=== PATIENT | female | born 1965 | race American Indian/Alaskan Native ===

== ENCOUNTER 2017-08-12 08:30 | Day surgery (SDC) | payer BC ==
[~2017-08-12 08:30] MED LIST: NACL 0.9% 1000 ML 1,000 ML IV SCH; PEPCID PO NR; VERSED IV NR
[2017-08-12] MEDS ORDERED: NACL BACTERIOSTATIC INFILTRATI ONE (15:10)
[2017-08-12] MEDS ORDERED: PERCOCET 5/325 PO PRN (15:19)
[2017-08-12] MEDS ORDERED: DILAUDID IV PRN (15:19)
[2017-08-12] MEDS ORDERED: ZOFRAN IV PRN (15:19)
--- NOTE | 2017-08-12 15:19 | Anesthesia Consultation ---
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
--- NOTE | 2017-08-12 15:20 | Anesthesia Day of Surgery ---
Anesthesia Day of Surgery - Day of Surgery Patient Examined: Yes Patient H&P Reviewed: Yes Patient is NPO: Yes
--- NOTE | 2017-08-12 16:46 | Post Operative Note ---
Date of procedure: 08/12/17 Pre-op diagnosis: ureteral stone Post-op diagnosis: same Findings: as above Procedure: cysto rpg ureteroscopy bilat stebnt laser Anesthesia: GETA Surgeon: TRACY DENNIS Estimated blood loss: none Condition: stable Disposition: PACU
--- NOTE | 2017-08-12 16:48 | Discharge Summary ---
Short Stay Discharge Plan Activity: other (no strsining ) Weight Bearing Status: Full Weight Bearing Diet: low fat, low cholesterol, low salt Special Instructions: other (inc fluids ) Follow up with: VINNY ACOSTA MD [Primary Care Provider] - 7 Days TRACY DENNIS MD [Staff Physician] - 10 Days
[2017-08-12] MEDS ORDERED: ANCEF/STERILE WATER 2 GM/20 ML IV NR (17:00)
[2017-08-12] MEDS ORDERED: DIPRIVAN 10 MG/ML IV ONE ×2 (17:25→17:56)
[2017-08-12] MEDS ORDERED: XYLOCAINE MPF 2% ONE (17:25)
[2017-08-12] MEDS ORDERED: SUBLIMAZE ONE (17:25)
[2017-08-12] MEDS ORDERED: ePHEDrine SULFATE ONE (17:59)
[2017-08-12] MEDS ORDERED: OMNIPAQUE 300 MG/50 ML (CATH LAB) IV ONE (18:01)
[2017-08-12] MEDS ORDERED: WATER FOR IRRIG STERILE IR ONE (18:01)
[2017-08-12] MEDS ORDERED: ZOFRAN ONE (18:05)
[2017-08-12] MEDS ORDERED: NACL 0.9% 1000 ML 1,000 ML ONE (18:08)
[2017-08-12] MEDS ORDERED: DILAUDID ONE (18:59)
[2017-08-12] MEDS ORDERED: GARAMYCIN/NS 120MG/100ML 120 MG/100 ML BAG IV ONE (19:00)
[2017-08-12] MEDS ORDERED: LASIX ONE (19:15)
--- NOTE | 2017-08-12 20:02 | Operative Report ---
PREOPERATIVE DIAGNOSIS: Bilateral mid ureteral stone. POSTOPERATIVE DIAGNOSES: Bilateral mid ureteral stone. PROCEDURE: Cystoscopy, bilateral retrograde, right ureteral balloon dilatation, ureteroscopy with reinsertion of double-J stent, left ureteroscopy with a stone transposition, laser of stone in the renal pelvis and insertion of double-J stent 7 x 24 bilaterally. SURGEON: Josué Morse MD ANESTHESIA: General. FINDINGS: This is a woman who presented with severe septicemia, history of cancer and pyuria. We left the stents in and now she presents for followup cystoscopy. She had bilateral mid ureteral stones, 1 at the level of the pelvic brim, 1 in the level of L3, now presents for treatment. DESCRIPTION OF PROCEDURE: The patient brought to the operating room and placed on the operating table. Following induction of anesthesia, placed in lithotomy position, prepped and draped in usual sterile fashion. A Glidewire was inserted through the stent along the right side and we tried to insert the rigid and flexible scope. There was some tightness at the lower ureter. We used the balloon dilator and we were able to get up to the stone, which started moving proximally. It was visualized, but it was imbedded in part of the epithelium. When we had to laser, there was just too much edema around it and the upper ureter should be noted that was kinked, there was a loop in the upper ureter, so it was initially hard to even get a second wire in because it kept coiling back on itself. With the visualization of the flexible ureteroscope, we had the second wire placed through a double lumen catheter first and then we used the flexible ureteroscope over the second wire. We kept seeing glimpses of the stone, but there was too much edema around it. We did not want to traumatize the upper mid ureter, so we placed a 7-Japanese coil in the kidney, did not laser on that side. The ureter was tortuous. It was almost like there is a little pocket in the upper ureter where we had to straighten it out to set place a second wire. At this point, attention was turned towards the left side, we grabbed the stent and put a wire through the stent and it was a straight shot with the flexible scope. We saw the stone and with irrigation, was right up into the renal pelvis. We were able to laser it to multiple calices. We did not see any other stones. The patient tolerated the procedure well, I placed a 7-Japanese double J in the left kidney, coiled in the bladder. The patient tolerated the procedure well. She was given Ancef and gentamicin and family notified we will have to, I suspect go back, we will get tomograms and be sure that maybe we could do lithotripsy. Otherwise, we will have to let the stent sit for about a month and go back. The right side has a tortuous ureter and we have to let this sit so we can have better access with the flexible ureteroscope. Brought to recovery in stable condition. Family notified. JOB# [id number] ITALO/MARIANO
--- NOTE | 2017-08-12 20:05 | Post Anesthesia Evaluation ---
- Post Anesthesia Evaluation Patient Participated: Yes Airway Patent: Yes Stable Respiratory Function: Yes Temp > 96.8F: Yes Pain Manageable: Yes Adequeate Hydration: Yes Anesthesia Complications: No
[2017-08-12 22:07] VITALS: BP 138/72
--- NOTE | 2017-08-13 08:10 | Fluoroscopy Report ---
SEVEN FLUOROSCOPIC IMAGES AT BILATERAL RETROGRADE PYELOGRAM: 08/12/17 CLINICAL: Bilateral renal stones. FINDINGS: Filing Machine Operator images bilateral ureteral stents.. Subsequent images demonstrate retrograde opacification of moderately dilated bilateral renal collecting systems. For more detail, please refer to the operative report.
--- NOTE | 2017-08-13 08:11 | Fluoroscopy Report ---
FLUOROSCOPIC IMAGE AT BILATERAL RP08/12/17 CLINICAL: Bilateral kidney stones. FINDINGS: A single image demonstrates a wire in the right ureter and a left ureteral stent. For more details, please refer to the operative report.
== END 2017-08-12 22:00 | disposition home or self-care (01) ==
LOC: OR 08:30
PROVIDERS: ATTEND Urology
DX: N20.1 Calculus of ureter (principal); I10 Essential (primary) hypertension
CPT/HCPCS: 36415; 52356; 74420; 74485; 82962; 84132; A4217; C1726; C1758; C1769; C2617; J0690; J1170; J1580; J1940; J2250; J2405; J2704; J3010; J7030; Q9967

== ENCOUNTER 2017-09-04 10:43 | Day surgery (SDC) | payer BC ==
[~2017-09-04 10:43] MED LIST changes: -NACL 0.9% 1000 ML 1,000 ML IV SCH; +OMNIPAQUE 300 MG/50 ML (CATH LAB) IV ONE; -PEPCID PO NR; -VERSED IV NR; +WATER FOR IRRIG STERILE IR ONE
--- NOTE | 2017-09-04 12:21 | Anesthesia Consultation ---
Anesthesia Consult and Med Hx Date of service: 09/04/17 - Airway Anesthetic Teeth Evaluation: Good ROM Head & Neck: Adequate Mental/Hyoid Distance: Adequate Mallampati Class: Class II Intubation Access Assessment: Probably Good - Pulmonary Exam CTA: Yes - Cardiac Exam Cardiac Exam: RRR - Pre-Operative Health Status ASA Pre-Surgery Classification: ASA2 Proposed Anesthetic Plan: General - Pulmonary Hx Smoking: No Hx Asthma: No COPD: No Hx Pneumonia: No Hx Sleep Apnea: No (KEY PRE SCREEN HIGH RISK) - Cardiovascular System Hx Hypertension: Yes - Central Nervous System Hx Back Pain: Yes (CANCER METS TO SPINE) Hx Psychiatric Problems: No - Endocrine Hx Renal Disease: Yes (bilateral stones) Hx End Stage Renal Disease: No Hx Non-Insulin Dependent Diabetes: No (on metformin due to chemo) - Other Systems Hx Cancer: Yes
--- NOTE | 2017-09-04 12:21 | Anesthesia Day of Surgery ---
Anesthesia Day of Surgery - Day of Surgery Patient Examined: Yes Patient H&P Reviewed: Yes Patient is NPO: Yes
[2017-09-04] MEDS ORDERED: DIPRIVAN 10 MG/ML IV ONE (12:23)
[2017-09-04] MEDS ORDERED: SUBLIMAZE ONE (12:24)
[2017-09-04] MEDS ORDERED: VALIUM ONE (12:27)
[2017-09-04] MEDS ORDERED: VERSED ONE (12:35)
[2017-09-04] MEDS ORDERED: WATER FOR IRRIG STERILE IR ONE (12:58)
[2017-09-04] MEDS ORDERED: PEPCID PO NR (13:00)
[2017-09-04] MEDS ORDERED: LACTATED RINGERS 1,000 ML IV SCH (13:00)
[2017-09-04] MEDS ORDERED: VERSED IV NR (13:00)
[2017-09-04] MEDS ORDERED: ANCEF/STERILE WATER 2 GM/20 ML 2 GM/20 ML SYRINGE IV NR (13:00)
[2017-09-04] MEDS ORDERED: OMNIPAQUE 300 MG/50 ML (CATH LAB) IV ONE (13:03)
[2017-09-04] MEDS ORDERED: ZOFRAN ONE (13:17)
[2017-09-04] MEDS ORDERED: DECADRON ONE (13:17)
[2017-09-04] MEDS ORDERED: XYLOCAINE MPF 2% ONE (13:17)
[2017-09-04] MEDS ORDERED: LASIX ONE (13:38)
[2017-09-04] MEDS ORDERED: LOPRESSOR IV ONE (14:04)
[2017-09-04] MEDS ORDERED: DILAUDID ONE (14:20)
[2017-09-04] MEDS: DILAUDID IV PRN ×2 (14:20→14:30)
[2017-09-04] MEDS ORDERED: ZOFRAN IV PRN (14:50)
--- NOTE | 2017-09-04 15:33 | Post Operative Note ---
Date of procedure: 09/04/17 Pre-op diagnosis: r ureteral stone stricture Post-op diagnosis: same Findings: as above Procedure: cysto dil rpg urerteroscopy j stent Anesthesia: GETA Surgeon: TRACY DENNIS Estimated blood loss: none Pathology: none Condition: stable Disposition: PACU
--- NOTE | 2017-09-04 15:34 | Discharge Summary ---
Short Stay Discharge Plan Activity: other (no straining ) Weight Bearing Status: Full Weight Bearing Diet: regular Special Instructions: other (inc fluids ) Durable Medical Equipment Needed Upon Discharge: other (has j stent ) Follow up with: VINNY ACOSTA MD [Primary Care Provider] - 7 Days TRACY DENNIS MD [Staff Physician] - 09/25/17
[2017-09-04 16:16] VITALS: BP 147/87
--- NOTE | 2017-09-04 18:18 | Operative Report ---
PREOPERATIVE DIAGNOSES: Bilateral ureteral stones, metastatic lung cancer. POSTOPERATIVE DIAGNOSES: Bilateral ureteral stones, metastatic lung cancer with ureteral strictures on the right with very tortuous right ureter. PROCEDURE: Cystoscopy, removal of left J stent, right ureteral balloon dilatation and dilatation with insertion of 2 wires, right flexible ureteroscopy, and nephroscopy and reinsertion of double-J stent. SURGEON: Josué Morse MD. ANESTHESIA: General. FINDINGS: This is a woman with bilateral ureteral stones presented with severe pain, azotemia, sepsis. Stents were placed. When we went back, the stone was removed on the left side. She now presents for left stent removal and the right stone was embedded in a very tortuous ureter, so we left the stent on the right. DESCRIPTION OF PROCEDURE: The patient was brought to the operating room and placed on the operating table. Following induction of anesthesia, placed in lithotomy position, prepped and draped in usual sterile fashion. The right stent was partially withdrawn and a wire coiled in the kidney. We could see clearly it was not so easy to get the wire up when she got below this flap. At this point, the wire was in position, we did not want to take a chance, so we did ureteroscopy and there was a stricture at the level of the vessels. The wire would not go past that kink in the upper ureter. At this point, we placed the double lumen catheters through the wire that was in the kidney and placed a second safety wire. We then tried the ureteral dilating sheath, which the inner core went up to the kidney, but the sheath could not go past the lower stricture and we did not push it. We then took a balloon and dilated the flap and with flexible ureteroscopy, we were able to get past the strictures and it looks like there was a tiny stone that was manipulated up in the kidney. We did not need a laser, it was very small. The patient tolerated the procedure well. The flap was quite prominent in the upper ureter and that is why many times the wire would just coil back on itself. A double J-7 was coiled in the right kidney and then cystoscopy in the left J was removed. The patient tolerated the procedure well. No complications. Family notified, in stable condition. JOB# [id number] ITALO/MARIANO
--- NOTE | 2017-09-05 14:24 | Fluoroscopy Report ---
FLUORO RETROGRADE UROGRAPHY INDICATION: Right ureteral stone. COMPARISON: 08/12/2017. FINDINGS: 7 intraoperative fluoroscopic images obtained between 1:46 PM and 2:29 PM, 09/04/2017 available for review as also separately obtained image from 2:17 PM, 09/04/2017. Initial images again demonstrate bilateral double-J ureteral stent. Right ureteroscopy performed with contrast injection faintly demonstrating mild to moderate hydronephrosis. Right balloon dilatation and stent exchange also performed. Final images demonstrate left double-J ureteral stent removal. No calculus identified. CONCLUSION: Findings, as above. Thank you for the opportunity to participate in this patient's care.
== END 2017-09-04 16:00 | disposition home or self-care (01) ==
LOC: OR 10:43
PROVIDERS: ATTEND Urology
DX: N13.5 Crossing vessel and stricture of ureter without hydronephrosis (principal); N20.1 Calculus of ureter; C78.01 Secondary malignant neoplasm of right lung; C80.1 Malignant (primary) neoplasm, unspecified; I10 Essential (primary) hypertension; E11.9 Type 2 diabetes mellitus without complications; Z79.84 Long term (current) use of oral hypoglycemic drugs; Z79.899 Other long term (current) drug therapy; Z90.710 Acquired absence of both cervix and uterus; Z98.890 Other specified postprocedural states; Z85.9 Personal history of malignant neoplasm, unspecified
CPT/HCPCS: 52344; 74420; 74485; 82962; A4217; C1725; C1726; C1758; C1769; C2617; J0690; J1100; J1170; J1940; J2250; J2405; J2704; J3010; J7120; Q9967

== ENCOUNTER 2017-11-19 19:30 | Emergency (ER) | payer BC ==
[2017-11-19 22:00] VITALS: BP 174/96
[2017-11-19 22:59] LABS: Basophils % (Auto) 0.2 % (0.0-1.8); Eosinophils % (Auto) 0.2 % (0.0-4.3); Hematocrit 37.6 % (30.3-42.9); Hemoglobin 12.3 gm/dl (10.1-14.3); Lymphocytes # (Auto) 1.2 K/mm3 (1.2-5.4); Lymphocytes % (Auto) 12.8 % (13.4-35.0); Mean Corpuscular HGB Conc 33 % (30-34); Mean Corpuscular Hemoglobin 27 pg (28-32); Mean Corpuscular Volume 84 fl (79-97); Monocytes # (Auto) 0.7 K/mm3 (0.0-0.8); Monocytes % (Auto) 7.5 % (0.0-7.3); Platelet Count 285 K/mm3 (140-440)
[2017-11-19 23:08] LABS: Bacteria,Urine 1+ /HPF (Negative); Bilirubin,Urine NEG (Negative); Blood,Urine SM (Negative); Color,Urine Yellow (Yellow); Hyaline Casts,Urine 1 /LPF; Mucus,Urine 1+ /HPF; Nitrite,Urine NEG (Negative); Urobilinogen,Urine < 2.0 mg/dL (<2.0)
[2017-11-19 23:16] LABS: Alanine Aminotransferase 10 units/L (7-56); Albumin 3.6 g/dL (3.9-5); BUN/Creatinine Ratio 17; Blood Urea Nitrogen 12 mg/dL (7-17); Calcium 9.5 mg/dL (8.4-10.2); Hemolysis Index 6; Lipase 28 units/L (13-60)
== END 2017-11-20 03:35 | disposition left against medical advice (07) ==
LOC: ED 19:30
DX: R10.9 Unspecified abdominal pain (principal); Z53.21 Procedure and treatment not carried out due to patient leaving prior to being seen by health care provider
CPT/HCPCS: 36415; 80053; 81001; 83690; 85025

== ENCOUNTER 2017-11-29 13:21 | Outpatient (CLI) | payer BC ==
--- NOTE | 2017-11-29 15:08 | Cat Scan Report ---
CT abdomen and pelvis without contrast: Hydronephrosis. Transverse images are performed from the lower chest to the ischium with coronal and sagittal 2-D reformatted images. Imaging of the lung bases demonstrates atelectasis of the medial posterior right lung. There is either a small right pleural effusion or thickening of the right pleura posteriorly. The abdominal organs appear generally unremarkable. The opacified bowel and mesentery appears grossly normal. The left kidney appears normal. There is significant hydronephrosis and hydroureter of the right side. There is a 4 mm calculus noted in the lower third of the right ureter. There are numerous phleboliths which are somewhat confusing but did not appear to lie within the ureter. Impression: Right hydronephrosis and hydroureter presumably due to the obstructing lower ureteral calculus. Right lower lobe pulmonary segmental atelectasis and pleural thickening/effusion.
== END 2017-11-29 13:22 | disposition home or self-care (01) ==
LOC: CT 13:21
PROVIDERS: ATTEND Urology
DX: N13.2 Hydronephrosis with renal and ureteral calculous obstruction (principal); J98.11 Atelectasis; I87.8 Other specified disorders of veins
CPT/HCPCS: 74176

== ENCOUNTER 2019-01-19 07:32 | Day surgery (SDC) | payer BC ==
[~2019-01-19 07:32] MED LIST changes: +NACL 0.9% 1000 ML 1,000 ML IV SCH; -OMNIPAQUE 300 MG/50 ML (CATH LAB) IV ONE; -WATER FOR IRRIG STERILE IR ONE
[2019-01-19] MEDS ORDERED: ANCEF/STERILE WATER 2 GM/20 ML IV NR (08:00)
[2019-01-19] MEDS ORDERED: DILAUDID IV PRN (08:37)
[2019-01-19] MEDS ORDERED: TYLENOL PO PRN (08:37)
[2019-01-19] MEDS ORDERED: DEMEROL IV PRN (08:37)
[2019-01-19] MEDS ORDERED: SUBLIMAZE IV PRN (08:37)
[2019-01-19] MEDS ORDERED: ZOFRAN IV PRN (08:37)
--- NOTE | 2019-01-19 08:45 | Anesthesia Consultation ---
Anesthesia Consult and Med Hx Date of service: 01/19/19 - Airway Anesthetic Teeth Evaluation: Good ROM Head & Neck: Adequate Mental/Hyoid Distance: Adequate Mallampati Class: Class II Intubation Access Assessment: Good - Pulmonary Exam CTA: Yes - Cardiac Exam Cardiac Exam: RRR - Pre-Operative Health Status ASA Pre-Surgery Classification: ASA2, ASA3 Proposed Anesthetic Plan: General - Pulmonary Hx Smoking: No Hx Asthma: No COPD: No Hx Pneumonia: No Hx Sleep Apnea: No (KEY PRE SCREEN HIGH RISK.) - Cardiovascular System Hx Hypertension: Yes (X 3 YRS) Hx Heart Attack/AMI: Yes (12/04/17) Hx Angina: No - Central Nervous System Hx Back Pain: Yes (DUE TO CA OF SPINE) Hx Psychiatric Problems: No - Endocrine Hx Renal Disease: Yes (bilateral stones) Hx End Stage Renal Disease: No Hx Non-Insulin Dependent Diabetes: No (on metformin due to chemo) - Hematic Hx Anemia: Yes - Other Systems Hx Cancer: Yes (DX 2014)
--- NOTE | 2019-01-19 08:46 | Anesthesia Day of Surgery ---
Anesthesia Day of Surgery - Day of Surgery Patient Examined: Yes Patient H&P Reviewed: Yes Patient is NPO: Yes Beta Blockers: Yes Cardiac Clearance: No Pulmonary Clearance: No
[2019-01-19] MEDS ORDERED: SUBLIMAZE ONE (08:52)
[2019-01-19] MEDS ORDERED: DIPRIVAN 10 MG/ML IV ONE (08:52)
[2019-01-19] MEDS ORDERED: WATER FOR IRRIG STERILE IR ONE ×2 (08:52→08:53)
[2019-01-19] MEDS ORDERED: ROBINUL ONE (08:55)
[2019-01-19] MEDS ORDERED: XYLOCAINE MPF 2% ONE (08:55)
[2019-01-19] MEDS ORDERED: NEO SYNEPHRINE/NS Syringe(OR USE) IV ONE (08:55)
[2019-01-19] MEDS ORDERED: LACTATED RINGERS 1,000 ML IV SCH (09:00)
[2019-01-19] MEDS ORDERED: TORADOL IV PRN (09:30)
--- NOTE | 2019-01-19 10:31 | Post Operative Note ---
Date of procedure: 01/19/19 Pre-op diagnosis: r hydro stone Post-op diagnosis: same Findings: as above Procedure: cysto rpgs ureteroscopy stent Anesthesia: GETA Surgeon: TRACY DENNIS Estimated blood loss: none Pathology: none Disposition: PACU
--- NOTE | 2019-01-19 10:33 | Discharge Summary ---
Short Stay Discharge Plan Activity: other (inc fluids ) Weight Bearing Status: Full Weight Bearing Diet: regular Special Instructions: other (inc fluids ) Durable Medical Equipment Needed Upon Discharge: other (has j stent ) Follow up with: VINNY ACOSTA MD [Primary Care Provider] - 7 Days TRACY DENNIS MD [Staff Physician] - 14 Days
[2019-01-19 11:34] VITALS: BP 137/81
--- NOTE | 2019-01-19 12:20 | Operative Report ---
PREOPERATIVE DIAGNOSES: Severe right hydronephrosis, damaged kidney for quite some time with distal ureteral obstruction. POSTOPERATIVE DIAGNOSES: Severe right hydronephrosis, damaged kidney for quite some time with distal ureteral obstruction. PROCEDURES: Cystoscopy, bilateral retrograde, right ureteral balloon dilatation, ureteroscopy which looked like transposition of the stone with very tight narrowing and double-J stent. SURGEON: Josué Morse MD ANESTHESIA: General. FINDINGS: This is a woman who has had severe obstruction for quite some time. She now presents for evaluation and treatment. DESCRIPTION OF PROCEDURE: The patient was brought to the operating room and placed on the operating table. Following induction of anesthesia, she was placed in lithotomy position and prepped and draped in usual sterile fashion. Cystourethroscopy showed normal bladder, minimal erythema from previous UTI. Retrograde on the left was normal, on the right showed severe dilatation above the pelvic brim. I did not see a distinct stone. We reviewed her CT scan before the procedure. This is clearly a stone. Glidewire coiled up in the kidney, very tortuous ureter. Second wire was placed as well. At this point, we tried ureteroscopy. It looked like there was a small stone that moved proximally, but we could not with safety get above the dilatation or above the stricture. We tried the flexible scope, it was very tight, so we left a 7-Armenian double-J stent. The patient tolerated the procedure well. Family was notified. She had a 7-Armenian stent in good position. She was brought to recovery in stable condition. JOB# [id number] ITALO/MARIANO
--- NOTE | 2019-01-19 18:06 | Post Anesthesia Evaluation ---
- Post Anesthesia Evaluation Patient Participated: Yes Airway Patent: Yes Stable Respiratory Function: Yes Nausea/Vomiting: No Temp > 96.8F: Yes Pain Manageable: Yes Adequeate Hydration: Yes Anesthesia Complications: No
--- NOTE | 2019-01-20 08:18 | Fluoroscopy Report ---
FLUOROSCOPY RETROGRADE UROGRAPHY: HISTORY: Right ureteral stone. FINDINGS: Fluoroscopy was provided by radiology during retrograde urography by the urologist. 11 fluoroscopic images were captured. The left retrograde pyelogram is normal. Images of the right retrograde pyelogram demonstrate moderate to severe right hydronephrosis. No obvious stone is visualized. Right ureteroscopy and balloon dilatation of the right ureter was performed per the operative note. A right ureteral stent was placed which is in good position on the final image. Please correlate with the procedural report as needed. IMPRESSION: Right hydronephrosis. Right ureteral stent placement.
== END 2019-01-19 11:35 | disposition home or self-care (01) ==
LOC: OR 07:32
PROVIDERS: ATTEND Urology
DX: N13.1 Hydronephrosis with ureteral stricture, not elsewhere classified (principal); I10 Essential (primary) hypertension; E11.9 Type 2 diabetes mellitus without complications; I25.2 Old myocardial infarction; E78.00 Pure hypercholesterolemia, unspecified; Z95.1 Presence of aortocoronary bypass graft; Z85.118 Personal history of other malignant neoplasm of bronchus and lung; Z90.710 Acquired absence of both cervix and uterus; Z87.440 Personal history of urinary (tract) infections; Z98.890 Other specified postprocedural states; Z79.899 Other long term (current) drug therapy; Z79.82 Long term (current) use of aspirin; Z86.2 Personal history of diseases of the blood and blood-forming organs and certain disorders involving the immune mechanism; Z88.8 Allergy status to other drugs, medicaments and biological substances
CPT/HCPCS: 52332; 74420; 74485; 82962; A4217; C1726; C1758; C1769; C2617; J1170; J2370; J2704; J3010; J7120; Q9967

== ENCOUNTER 2019-02-19 05:45 | Day surgery (SDC) | payer BC ==
[~2019-02-19 05:45] MED LIST changes: +LACTATED RINGERS 1,000 ML IV SCH; -NACL 0.9% 1000 ML 1,000 ML IV SCH
[2019-02-19] MEDS ORDERED: VERSED IV NR (06:00)
[2019-02-19] MEDS ORDERED: Vasostrict ONE (07:16)
--- NOTE | 2019-02-19 07:18 | Anesthesia Consultation ---
Anesthesia Consult and Med Hx Date of service: 02/19/19 - Airway Anesthetic Teeth Evaluation: Good ROM Head & Neck: Adequate Mental/Hyoid Distance: Adequate Mallampati Class: Class II Intubation Access Assessment: Good - Pulmonary Exam CTA: Yes - Cardiac Exam Cardiac Exam: RRR - Pre-Operative Health Status ASA Pre-Surgery Classification: ASA3 Proposed Anesthetic Plan: General - Pulmonary Hx Smoking: No Hx Asthma: No COPD: No Hx Pneumonia: No Hx Sleep Apnea: No (KEY PRE SCREEN HIGH RISK.) - Cardiovascular System Hx Hypertension: Yes (X 3 YRS) Hx Heart Attack/AMI: Yes (12/04/17) Hx Angina: No - Central Nervous System Hx Back Pain: Yes (DUE TO CA OF SPINE) Hx Psychiatric Problems: No - Endocrine Hx End Stage Renal Disease: No Hx Non-Insulin Dependent Diabetes: No (on metformin due to chemo) - Hematic Hx Anemia: Yes - Other Systems Hx Cancer: Yes (DX 2014)
[2019-02-19] MEDS ORDERED: ZOFRAN IV PRN (07:19)
[2019-02-19] MEDS ORDERED: SUBLIMAZE IV PRN (07:19)
[2019-02-19] MEDS ORDERED: NARCAN 0.4 MG/1 ML IV PRN (07:19)
[2019-02-19] MEDS ORDERED: DILAUDID IV PRN (07:19)
--- NOTE | 2019-02-19 07:19 | Anesthesia Day of Surgery ---
Anesthesia Day of Surgery - Day of Surgery Patient Examined: Yes Patient H&P Reviewed: Yes Patient is NPO: Yes Beta Blockers: Yes
[2019-02-19] MEDS ORDERED: SUBLIMAZE ONE (07:21)
[2019-02-19] MEDS ORDERED: DIPRIVAN 10 MG/ML IV ONE (07:21)
[2019-02-19] MEDS ORDERED: ANCEF/STERILE WATER 2 GM/20 ML 2 GM/20 ML SYRINGE IV ONE (07:34)
[2019-02-19] MEDS ORDERED: ANCEF/STERILE WATER 2 GM/20 ML IV NR (07:36)
[2019-02-19] MEDS ORDERED: ROBINUL ONE (07:38)
[2019-02-19] MEDS ORDERED: XYLOCAINE MPF 2% ONE (07:38)
[2019-02-19] MEDS ORDERED: NEO SYNEPHRINE ONE (07:38)
[2019-02-19] MEDS ORDERED: DECADRON ONE (07:38)
[2019-02-19] MEDS ORDERED: WATER FOR IRRIG STERILE IR ONE (07:52)
[2019-02-19] MEDS ORDERED: OMNIPAQUE 300 MG/50 ML (CATH LAB) IV ONE (07:58)
[2019-02-19] MEDS ORDERED: BREVIBLOC IV ONE (08:33)
--- NOTE | 2019-02-19 09:12 | Post Operative Note ---
Date of procedure: 02/19/19 Pre-op diagnosis: r uereteral stiones Post-op diagnosis: same Findings: cysto ureteroscopy Procedure: see above Anesthesia: GETA Surgeon: TRACY DENNIS Estimated blood loss: minimal Pathology: none Condition: stable Disposition: PACU
--- NOTE | 2019-02-19 09:13 | Discharge Summary ---
Short Stay Discharge Plan Activity: other (no straining ) Weight Bearing Status: Full Weight Bearing Diet: low fat, low cholesterol, low salt Special Instructions: other (inc fluids ) Durable Medical Equipment Needed Upon Discharge: other (stent) Follow up with: VINNY ACOSTA MD [Primary Care Provider] - 7 Days TRACY DENNIS MD [Staff Physician] - 7 Days
--- NOTE | 2019-02-19 09:50 | Operative Report ---
PREOPERATIVE DIAGNOSES: Multiple right ureteral stones with moderate severe hydronephrosis. POSTOPERATIVE DIAGNOSES: Multiple right ureteral stones with moderate severe hydronephrosis with a distal stone at the junction of mid and lower ureter and more proximal stones as well. PROCEDURE: Cystoscopy, retrograde, stent exchange, right ureteroscopy, laser. SURGEON: Josué Morse MD ANESTHESIA: General. FINDINGS: This is a woman with multiple stones in her ureter. We could not get past the pelvic brim. Last time, it was so much inflammation, we left the stent. She now presents for staged ureteroscopy. She understands this will might need multiple staged procedures. DESCRIPTION OF PROCEDURE: The patient was brought to the operating room and placed on the operating table. Following induction of anesthesia, placed in lithotomy position, prepped and draped in usual sterile fashion. The stent was withdrawn. A wire coiled in the kidney. A rigid ureteroscope was placed and once again there was severe inflammation at the junction on the lower and mid ureter. I suspect there was an impacted stone there. Using the double lumen catheter, a second wire was placed because the second wire we tried to place with the scope kept coiling in a pocket of the ureter. We placed an open-ended over that wire, ____ exactly why the ureter took a dip and a J turned to go back in the upper ureter above the area of obstruction. Once we got a second wire and using the double lumen catheter, ureteroscopy showed not only a stone at that junction, but stones in the upper ureter, right above the J hook. We used the laser to fragment the stone, especially the one on the lower ureter where the initial problem probably was started. ____ was then wide open. The upper ureter was hard to manipulate. I suspect some of the stones went back in the dilated kidney. Everything was freed up. She may need a third stage and I explained this to her . The patient tolerated the procedure well. A 7-Mongolian coiled in the kidney, was brought to recovery in stable condition. JOB# [id number] ITALO/MARIANO
[2019-02-19 11:18] VITALS: BP 109/76
--- NOTE | 2019-02-20 15:58 | Fluoroscopy Report ---
FLUORO RETROGRADE UROGRAPHY INDICATION: Right ureteral stone. COMPARISON: 01/19/2019 RUG and 11/29/2017 CT. IMAGES/CINE CLIPS: 13 FINDINGS: Initial paper tube cutter radiographs from 7:44 AM demonstrate a right double-J ureteral stent that was removed with subsequent right retrograde pyelogram demonstrating innumerable small filling defects along the proximal to mid right ureter measuring up to approximately 5 mm in size. Mild right hydroureteronephrosis also noted, though lesser/partly improved. Right ureteroscopy and ureteral dilatation then performed with stones visualized and broken up with holmium laser, to the extent possible. Right double-J ureteral stent satisfactorily positioned at the end of the exam. 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 Please also correlate with Dr. Morse's notes. Thank you for the opportunity to participate in this patient's care.
== END 2019-02-19 11:10 | disposition home or self-care (01) ==
LOC: OR 05:45
PROVIDERS: ATTEND Urology
DX: N13.2 Hydronephrosis with renal and ureteral calculous obstruction (principal); I10 Essential (primary) hypertension; E11.9 Type 2 diabetes mellitus without complications; E78.00 Pure hypercholesterolemia, unspecified; Z90.710 Acquired absence of both cervix and uterus; Z87.440 Personal history of urinary (tract) infections; Z85.89 Personal history of malignant neoplasm of other organs and systems; Z79.82 Long term (current) use of aspirin; Z79.899 Other long term (current) drug therapy; Z85.118 Personal history of other malignant neoplasm of bronchus and lung; Z95.5 Presence of coronary angioplasty implant and graft; Z86.2 Personal history of diseases of the blood and blood-forming organs and certain disorders involving the immune mechanism; Z88.8 Allergy status to other drugs, medicaments and biological substances
CPT/HCPCS: 52356; 74420; 82962; A4217; C1758; C1769; C2617; J0690; J1100; J2250; J2370; J2405; J2704; J3010; J7120; Q9967

== ENCOUNTER 2019-10-29 07:54 | Day surgery (SDC) | payer BC, MEDICARE ==
[2019-10-29] MEDS ORDERED: LACTATED RINGERS 1,000 ML IV SCH (08:45)
[2019-10-29] MEDS ORDERED: MIDAZOLAM 2 MG/2 ML INJ IV NR (08:47)
[2019-10-29] MEDS ORDERED: ceFAZolin/STERILE WATER 2 GM/20 ML SYRINGE IV NR (09:00)
--- NOTE | 2019-10-29 09:24 | XRay Report ---
ABDOMEN 1 VIEW(S) INDICATION / CLINICAL INFORMATION: KIDNEY STONES. COMPARISON: None available. FINDINGS: No obvious calcifications overlie the renal shadows on x-ray. An approximate 5 mm calcification overl ies the expected course of the left ureter at the level of L3-4. Multiple pelvic phleboliths are note d. The bowel gas pattern is within normal limits. IMPRESSION: Question left ureteral stone as described. Please correlate with the clinical presentation of the pat ient. Signer Name: Lawrence Luong Jr, MD Signed: 10/29/2019 9:20 AM Workstation Name: [id number]
[2019-10-29] MEDS ORDERED: propofoL 200 MG/20 ML VIAL IV ONE (09:25)
[2019-10-29] MEDS ORDERED: fentaNYL 100 MCG/2 ML INJ ONE (09:25)
[2019-10-29] MEDS ORDERED: LIDOCAINE MPF (2%) 20 MG/1 ML VIAL 5 ML ONE (09:27)
[2019-10-29] MEDS ORDERED: LACTATED RINGERS 1,000 ML ONE (09:38)
--- NOTE | 2019-10-29 09:42 | Anesthesia Day of Surgery ---
Anesthesia Day of Surgery - Day of Surgery Patient Examined: Yes Patient H&P Reviewed: Yes Patient is NPO: Yes
--- NOTE | 2019-10-29 09:42 | Anesthesia Consultation ---
Anesthesia Consult and Med Hx Date of service: 10/29/19 - Airway Anesthetic Teeth Evaluation: Good ROM Head & Neck: Adequate Mental/Hyoid Distance: Adequate Mallampati Class: Class II Intubation Access Assessment: Good - Pulmonary Exam CTA: Yes - Cardiac Exam Cardiac Exam: RRR - Pre-Operative Health Status ASA Pre-Surgery Classification: ASA2 Proposed Anesthetic Plan: General - Cardiovascular System Hx Hypertension: Yes (X 3.5 YRS) Hx Heart Attack/AMI: Yes (12/04/17) Hx Angina: No - Central Nervous System Hx Back Pain: Yes (DUE TO CA OF SPINE) Hx Psychiatric Problems: No - Endocrine Hx Non-Insulin Dependent Diabetes: No (on metformin due to chemo) - Hematic Hx Anemia: Yes - Other Systems Hx Cancer: Yes (DX 2014)
[2019-10-29] MEDS ORDERED: SODIUM CHLORIDE 0.9% 1000 ML 1,000 ML IV SCH (09:45)
[2019-10-29] MEDS ORDERED: ONDANSETRON 4 MG/2 ML INJ IV PRN (11:17)
--- NOTE | 2019-10-29 11:18 | Post Operative Note ---
Date of procedure: 10/29/19 Pre-op diagnosis: left ureteral stone Post-op diagnosis: same Findings: as above Procedure: l eswl Anesthesia: ANGIE Surgeon: TRACY DENNIS Estimated blood loss: none Pathology: none Condition: stable Disposition: PACU
--- NOTE | 2019-10-29 11:20 | Discharge Summary ---
Short Stay Discharge Plan Activity: other (no straining ) Weight Bearing Status: Full Weight Bearing Diet: low fat, low cholesterol, low salt Special Instructions: other (inc fluids ) Follow up with: VINNY ACOSTA MD [Primary Care Provider] - 7 Days TRACY DENNIS MD [Staff Physician] - 7 Days
--- NOTE | 2019-10-29 11:33 | Operative Report ---
PREOPERATIVE DIAGNOSES: Left mid ureteral stone, chronic right hydronephrosis. POSTOPERATIVE DIAGNOSES: Left mid ureteral stone, chronic right hydronephrosis. PROCEDURE: In situ left ureteral lithotripsy. SURGEON: Dr. Morse. ANESTHESIA: General. FINDINGS: This is a woman who has had previous cancer and has a port. She has previous stones in the right and chronic right hydronephrosis, normal renal function and now a left mid ureteral stone. It was seen on the KUB. DESCRIPTION OF PROCEDURE: The patient was brought to the operating room and placed on the operating table. Following induction of anesthesia, the stone was well localized, both the AP and oblique image. Shocks were begun at 1 kV, increased to a maximum of 8 kV. The patient tolerated the procedure well. It definitely spread out and actually the last 200 shocks, we went to 9 kV. A total of 2600 shocks were given. This is all in the ureter. The patient tolerated the procedure well and brought to recovery room in stable condition. JOB# [id number] ITALO/MARIANO
[2019-10-29] MEDS: HYDROmorphone 1 MG/1 ML INJ IV PRN ×2 (11:35→11:50)
[2019-10-29 12:33] VITALS: BP 140/76
== END 2019-10-29 12:28 | disposition home or self-care (01) ==
LOC: OR 07:54
PROVIDERS: ATTEND Urology
DX: N13.2 Hydronephrosis with renal and ureteral calculous obstruction (principal); I10 Essential (primary) hypertension; D64.9 Anemia, unspecified; E11.9 Type 2 diabetes mellitus without complications; C78.00 Secondary malignant neoplasm of unspecified lung; E78.00 Pure hypercholesterolemia, unspecified; Z79.899 Other long term (current) drug therapy; Z79.82 Long term (current) use of aspirin; Z88.8 Allergy status to other drugs, medicaments and biological substances; Z90.710 Acquired absence of both cervix and uterus; Z98.890 Other specified postprocedural states; Z87.440 Personal history of urinary (tract) infections; Z85.118 Personal history of other malignant neoplasm of bronchus and lung
CPT/HCPCS: 50590; 74018; 82803; 82962; J0690; J1170; J2250; J2405; J2704; J3010; J7120

== ENCOUNTER 2019-11-10 12:46 | Emergency (ER) | payer BC, MEDICARE ==
[2019-11-10] MEDS ORDERED: ONDANSETRON 4 MG/2 ML INJ IV ONE (13:05)
[2019-11-10] MEDS ORDERED: KETOROLAC 30 MG/1 ML INJ IV ONE (13:05)
[2019-11-10] MEDS ORDERED: SODIUM CHLORIDE 0.9% 1000 ML 1,000 ML IV ONE (13:07)
--- NOTE | 2019-11-10 13:07 | Event Note ---
ED Screening Note Date of service: 11/10/19 Time: 12:58 ED Screening Note: 54 yo female recent lithotripsy x 1 week presents with Right sided abd pain and nausea x this am This initial assessment/diagnostic orders/clinical plan/treatment(s) is/are subject to change based on patients health status, clinical progression and re- assessment by fellow clinical providers in the ED. Further treatment and workup at subsequent clinical providers discretion. Patient/guardian urged not to elope from the ED as their condition may be serious if not clinically assessed and managed. Initial orders include: labs, CT scan iv toradol,zofran and fluids in triage
[2019-11-10 13:48] LABS: Basophils % (Auto) 0.5 % (0.0-1.8); Eosinophils # (Auto) 0.1 K/mm3 (0.0-0.4); Eosinophils % (Auto) 1.3 % (0.0-4.3); Hematocrit 38.1 % (30.3-42.9); Hemoglobin 12.2 gm/dl (10.1-14.3); Lymphocytes # (Auto) 1.6 K/mm3 (1.2-5.4); Lymphocytes % (Auto) 27.3 % (13.4-35.0); Mean Corpuscular HGB Conc 32 % (30-34); Mean Corpuscular Volume 83 fl (79-97); Monocytes # (Auto) 0.5 K/mm3 (0.0-0.8); Monocytes % (Auto) 8.4 % (0.0-7.3); Platelet Count 281 K/mm3 (140-440); Red Blood Count 4.56 M/mm3 (3.65-5.03); Red Cell Distribution Width 16.4 % (13.2-15.2)
[2019-11-10] MEDS ORDERED: MORPHINE 4 MG/1 ML INJ IV ONE (14:00)
[2019-11-10 14:04] LABS: Alanine Aminotransferase 13 units/L (7-56); Albumin 3.8 g/dL (3.9-5); BUN/Creatinine Ratio 16; Blood Urea Nitrogen 13 mg/dL (7-17); Calcium 9.6 mg/dL (8.4-10.2); Hemolysis Index 3
[2019-11-10] MEDS ORDERED: MORPHINE 4 MG/1 ML INJ ONE (14:11)
--- NOTE | 2019-11-10 16:25 | Cat Scan Report ---
CT ABDOMEN AND PELVIS WITHOUT CONTRAST HISTORY: pain COMPARISON: 11/29/2017 TECHNIQUE: Axial CT images were obtained through the abdomen and pelvis without IV contrast. Sagittal and coronal reformatted images. All CT scans at this location are performed using CT dose reduction for ALARA by means of automated exposure control. FINDINGS: CT ABDOMEN: Lung Bases: Moderate layering right pleural effusion compresses the right lower lobe. Heart size is n ormal although a moderate pericardial effusion is identified. Liver: No significant abnormality. Biliary: No significant abnormality. Spleen: No significant abnormality. Unenlarged. Pancreas: No significant abnormality. Adrenals: No significant abnormality. Kidneys: Moderate bilateral hydronephrosis is identified. No convincing obstructing lesion is identif ied in the distal right ureter. This may be secondary to stricture. A 4 mm stone is identified in the mid to distal left ureter at the level of S1. Few tiny bilateral renal calyceal stones are also note d. No focal renal lesion. Lymphatics: No lymphadenopathy. Vasculature: No significant abnormality. Bowel/Peritoneum: No significant abnormality. No free air. No free fluid. The appendix is not confide ntly identified. CT PELVIS: : No significant abnormality Osseous Structures: No significant abnormality. Additional Findings: None IMPRESSION: Bilateral hydronephrosis as described above. Moderate right pleural effusion and pericardial effusion. No acute inflammatory process is identified in the abdomen or pelvis. Signer Name: Lawrence Luong Jr, MD Signed: 11/10/2019 4:21 PM Workstation Name: [id number]
[2019-11-10 21:05] LABS: Bacteria,Urine 1+ /HPF (Negative); Bilirubin,Urine NEG (Negative); Blood,Urine SM (Negative); Color,Urine Yellow (Yellow); Mucus,Urine FEW /HPF; Protein,Urine <15 mg/dL mg/dL (Negative); Urobilinogen,Urine < 2.0 mg/dL (<2.0)
--- NOTE | 2019-11-10 21:07 | Emergency Department Report ---
ED Abdominal Pain HPI - General Chief Complaint: Back Pain/Injury Stated Complaint: KIDNEY STONE PAIN Time Seen by Provider: 11/10/19 20:16 Source: patient Mode of arrival: Wheelchair Limitations: No Limitations - History of Present Illness Initial Comments: 54-year-old female with a past medical history of diabetes, CAD with stent 2, hypertension, multiple kidney stones with stent placement, and lung cancer status post chemotherapy and radiation in 2017 currently in remission presents to the hospital complains of right lower quadrant abdominal pain that started earlier today. Pain is across her right suprapubic area radiating to the right flank rated 10/10 in intensity. Pain is Worse palpation, no alleviating factors. Positive nausea and vomiting. No fever or dysuria. Pain feels similar to previous kidney stones. Patient had recent lithotripsy for a left- sided kidney stone. Patient was placed on cefuroxine abx but admits to starting the medication late because she lost the prescription. Patient is taking 250 mg twice a day 10 days and has 1 tablet left. Urologist: Dr. Donohue Severity scale (0 -10): 6 - Related Data Home Medications Medication Instructions Recorded Confirmed Last Taken Ondansetron (Nf) [Zofran TAB] 8 mg PO PRN PRN 07/25/17 10/23/19 10/28/19 Albuterol Sulfate [Proair 90 mcg IH PRN PRN 08/26/17 10/29/19 2 Weeks Ago Respiclick] ~10/15/19 Aspirin [Aspir-Low] 81 mg PO DAILY 01/16/19 10/23/19 10/22/19 Ferrous Sulfate [Feosol] 325 mg PO QDAY 01/16/19 10/23/19 10/28/19 Losartan [Cozaar] 25 mg PO QDAY 01/16/19 10/23/19 10/29/19 06:45 Metoprolol [Lopressor] 100 mg PO DAILY 01/16/19 10/23/19 10/28/19 Rosuvastatin (Nf) [Crestor] 10 mg PO QHS 01/16/19 10/23/19 10/28/19 Previous Rx's Medication Instructions Recorded Last Taken Type oxyCODONE 15 mg PO 4XD PRN #14 07/30/17 10/29/19 06:45 Rx Ketorolac [Toradol] 10 mg PO Q6H PRN #20 tablet 11/10/19 Unknown Rx Tamsulosin [Flomax] 0.4 mg PO QDAY #7 cap 11/10/19 Unknown Rx levoFLOXacin [Levaquin] 750 mg PO QDAY #7 tablet 11/10/19 Unknown Rx Allergies Allergy/AdvReac Type Severity Reaction Status Date / Time lisinopril Allergy Itching Verified 10/23/19 13:21 ED Review of Systems ROS: Stated complaint: KIDNEY STONE PAIN Other details as noted in HPI Comment: All other systems reviewed and negative ED Past Medical Hx - Past Medical History Previous Medical History?: Yes Hx Hypertension: Yes (X 3.5 YRS) Hx Heart Attack/AMI: Yes (12/04/17) Hx Congestive Heart Failure: No Hx Diabetes: Yes (AQUIRED WITH CHEMO , NOW RESOLVED AFTER CHEMO STOPPED) Hx of Cancer: Yes (lung) Hx Kidney Stones: Yes - Surgical History Past Surgical History?: Yes Hx Coronary Stent: Yes (X 2( 11/2017)) Hx Breast Surgery: Yes (BREAST REDUCTION) Additional Surgical History: Bilateral Uretral Stents. Partial Hysterectomy - Social History Smoking Status: Never Smoker Substance Use Type: None - Medications Home Medications: Home Medications Medication Instructions Recorded Confirmed Last Taken Type Ondansetron (Nf) [Zofran TAB] 8 mg PO PRN PRN 07/25/17 10/23/19 10/28/19 History oxyCODONE 15 mg PO 4XD PRN #14 07/30/17 10/23/19 10/29/19 06:45 Rx Albuterol Sulfate [Proair 90 mcg IH PRN PRN 08/26/17 10/29/19 2 Weeks Ago History Respiclick] ~10/15/19 Aspirin [Aspir-Low] 81 mg PO DAILY 01/16/19 10/23/19 10/22/19 History Ferrous Sulfate [Feosol] 325 mg PO QDAY 01/16/19 10/23/19 10/28/19 History Losartan [Cozaar] 25 mg PO QDAY 01/16/19 10/23/19 10/29/19 06:45 History Metoprolol [Lopressor] 100 mg PO DAILY 01/16/19 10/23/19 10/28/19 History Rosuvastatin (Nf) [Crestor] 10 mg PO QHS 01/16/19 10/23/19 10/28/19 History Ketorolac [Toradol] 10 mg PO Q6H PRN #20 tablet 11/10/19 Unknown Rx Tamsulosin [Flomax] 0.4 mg PO QDAY #7 cap 11/10/19 Unknown Rx levoFLOXacin [Levaquin] 750 mg PO QDAY #7 tablet 11/10/19 Unknown Rx ED Physical Exam - General Limitations: No Limitations - Other Other exam information: General: No limitations, patient is alert in no acute distress Head exam: Atraumatic, normocephalic Eyes exam: Normal appearance ENT: Moist mucous membrane Neck exam: Normal inspection, full range of motion Respiratory exam: Clear to auscultation bilateral, no wheezes, rales, crackles Cardiovascular: Normal rate and rhythm Abdomen: Soft, nondistended, and right lower quadrant tenderness, with normal bowel sounds, no rebound, or guarding, Extremity:No Deformity Back: Normal Inspection, no CVA tenderness Neurologic: Alert, oriented x3, speech clear, no gross motor or sensory deficit Psychiatric: normal affect, normal mood Skin: Warm, dry, intact ED Course Vital Signs 11/10/19 11/10/19 11/10/19 12:52 12:53 19:53 Temperature 98.0 F 98.4 F Pulse Rate 117 H 107 H 101 H Respiratory 18 18 Rate Blood Pressure 154/110 140/89 Blood Pressure [Left] O2 Sat by Pulse 100 100 97 Oximetry 11/10/19 23:24 Temperature Pulse Rate 98 H Respiratory 17 Rate Blood Pressure Blood Pressure 152/96 [Left] O2 Sat by Pulse 99 Oximetry - Reevaluation(s) Reevaluation #1: 11/10/19 22:01 Patient feels better with ED treatment pain medication and IV fluids with control of pain and vomiting. pt given levaquin po in ed. ED Medical Decision Making - Lab Data Result diagrams: 11/10/19 13:21 11/10/19 13:21 Lab Results 11/10/19 11/10/19 11/10/19 Range/Units 13:21 13:21 13:21 WBC 6.0 (4.5-11.0) K/mm3 RBC 4.56 (3.65-5.03) M/mm3 Hgb 12.2 (10.1-14.3) gm/dl Hct 38.1 (30.3-42.9) % MCV 83 (79-97) fl MCH 27 L (28-32) pg MCHC 32 (30-34) % RDW 16.4 H (13.2-15.2) % Plt Count 281 (140-440) K/mm3 Lymph % (Auto) 27.3 (13.4-35.0) % Mills % (Auto) 8.4 H (0.0-7.3) % Eos % (Auto) 1.3 (0.0-4.3) % Baso % (Auto) 0.5 (0.0-1.8) % Lymph # 1.6 (1.2-5.4) K/mm3 Mills # 0.5 (0.0-0.8) K/mm3 Eos # 0.1 (0.0-0.4) K/mm3 Baso # 0.0 (0.0-0.1) K/mm3 Seg Neutrophils % 62.5 (40.0-70.0) % Seg Neutrophils # 3.8 (1.8-7.7) K/mm3 Sodium 142 (137-145) mmol/L Potassium 3.8 (3.6-5.0) mmol/L Chloride 106.4 (98-107) mmol/L Carbon Dioxide 19 L (22-30) mmol/L Anion Gap 20 mmol/L BUN 13 (7-17) mg/dL Creatinine 0.8 (0.7-1.2) mg/dL Estimated GFR > 60 ml/min BUN/Creatinine Ratio 16 % Glucose 172 H (65-100) mg/dL Calcium 9.6 (8.4-10.2) mg/dL Total Bilirubin 0.30 (0.1-1.2) mg/dL AST 18 (5-40) units/L ALT 13 (7-56) units/L Alkaline Phosphatase 109 (35-129) units/L Total Protein 8.3 H (6.3-8.2) g/dL Albumin 3.8 L (3.9-5) g/dL Albumin/Globulin Ratio 0.8 % Lipase 30 (13-60) units/L Urine Color (Yellow) Urine Turbidity (Clear) Urine pH (5.0-7.0) Ur Specific [place] (1.003-1.030) Urine Protein (Negative) mg/dL Urine Glucose (UA) (Negative) mg/dL Urine Ketones (Negative) mg/dL Urine Blood (Negative) Urine Nitrite (Negative) Urine Bilirubin (Negative) Urine Urobilinogen (<2.0) mg/dL Ur Leukocyte Esterase (Negative) Urine WBC (Auto) (0.0-6.0) /HPF Urine RBC (Auto) (0.0-6.0) /HPF U Epithel Cells (Auto) (0-13.0) /HPF Urine Bacteria (Auto) (Negative) /HPF Urine Mucus /HPF 11/10/19 Range/Units 20:45 WBC (4.5-11.0) K/mm3 RBC (3.65-5.03) M/mm3 Hgb (10.1-14.3) gm/dl Hct (30.3-42.9) % MCV (79-97) fl MCH (28-32) pg MCHC (30-34) % RDW (13.2-15.2) % Plt Count (140-440) K/mm3 Lymph % (Auto) (13.4-35.0) % Mills % (Auto) (0.0-7.3) % Eos % (Auto) (0.0-4.3) % Baso % (Auto) (0.0-1.8) % Lymph # (1.2-5.4) K/mm3 Mills # (0.0-0.8) K/mm3 Eos # (0.0-0.4) K/mm3 Baso # (0.0-0.1) K/mm3 Seg Neutrophils % (40.0-70.0) % Seg Neutrophils # (1.8-7.7) K/mm3 Sodium (137-145) mmol/L Potassium (3.6-5.0) mmol/L Chloride (98-107) mmol/L Carbon Dioxide (22-30) mmol/L Anion Gap mmol/L BUN (7-17) mg/dL Creatinine (0.7-1.2) mg/dL Estimated GFR ml/min BUN/Creatinine Ratio % Glucose (65-100) mg/dL Calcium (8.4-10.2) mg/dL Total Bilirubin (0.1-1.2) mg/dL AST (5-40) units/L ALT (7-56) units/L Alkaline Phosphatase (35-129) units/L Total Protein (6.3-8.2) g/dL Albumin (3.9-5) g/dL Albumin/Globulin Ratio % Lipase (13-60) units/L Urine Color Yellow (Yellow) Urine Turbidity Slightly-cloudy (Clear) Urine pH 7.0 (5.0-7.0) Ur Specific [place] 1.013 (1.003-1.030) Urine Protein <15 mg/dl (Negative) mg/dL Urine Glucose (UA) Neg (Negative) mg/dL Urine Ketones Neg (Negative) mg/dL Urine Blood Sm (Negative) Urine Nitrite Neg (Negative) Urine Bilirubin Neg (Negative) Urine Urobilinogen < 2.0 (<2.0) mg/dL Ur Leukocyte Esterase Mod (Negative) Urine WBC (Auto) 19.0 H (0.0-6.0) /HPF Urine RBC (Auto) 45.0 (0.0-6.0) /HPF U Epithel Cells (Auto) 13.0 (0-13.0) /HPF Urine Bacteria (Auto) 1+ (Negative) /HPF Urine Mucus Few /HPF - Radiology Data Radiology results: report reviewed CT ABDOMEN AND PELVIS WITHOUT CONTRAST HISTORY: pain COMPARISON: 11/29/2017 TECHNIQUE: Axial CT images were obtained through the abdomen and pelvis without IV contrast. Sagittal and coronal reformatted images. All CT scans at this location are performed using CT dose reduction for ALARA by means of automated exposure control. FINDINGS: CT ABDOMEN: Lung Bases: Moderate layering right pleural effusion compresses the right lower lobe. Heart size is normal although a moderate pericardial effusion is identified. Liver: No significant abnormality. Biliary: No significant abnormality. Spleen: No significant abnormality. Unenlarged. Pancreas: No significant abnormality. Adrenals: No significant abnormality. Kidneys: Moderate bilateral hydronephrosis is identified. No convincing obstructing lesion is identified in the distal right ureter. This may be secondary to stricture. A 4 mm stone is identified in the mid to distal left ureter at the level of S1. Few tiny bilateral renal calyceal stones are also noted. No focal renal lesion. Lymphatics: No lymphadenopathy. Vasculature: No significant abnormality. Bowel/Peritoneum: No significant abnormality. No free air. No free fluid. The appendix is not confidently identified. CT PELVIS: : No significant abnormality CT ABDOMEN AND PELVIS WITHOUT CONTRAST HISTORY: pain COMPARISON: 11/29/2017 TECHNIQUE: Axial CT images were obtained through the abdomen and pelvis without IV contrast. Sagittal and coronal reformatted images. All CT scans at this location are performed using CT dose reduction for ALARA by means of automated exposure control. FINDINGS: CT ABDOMEN: Lung Bases: Moderate layering right pleural effusion compresses the right lower lobe. Heart size is normal although a moderate pericardial effusion is identified. Liver: No significant abnormality. Biliary: No significant abnormality. Spleen: No significant abnormality. Unenlarged. Pancreas: No significant abnormality. Adrenals: No significant abnormality. Kidneys: Moderate bilateral hydronephrosis is identified. No convincing obstructing lesion is identified in the distal right ureter. This may be secondary to stricture. A 4 mm stone is identified in the mid to distal left ureter at the level of S1. Few tiny bilateral renal calyceal stones are also noted. No focal renal lesion. Lymphatics: No lymphadenopathy. Vasculature: No significant abnormality. Bowel/Peritoneum: No significant abnormality. No free air. No free fluid. The appendix is not confidently identified. CT PELVIS: : No significant abnormality - Medical Decision Making Improvement with ED treatment. UA suggestive of UTI. Patient has one more dose of her cephalosporin antibiotic and will also be provided Levaquin 7 days. Cultures pending. No signs of sepsis or septic shock. 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 Patient takes oxycodone 15 mg and Zofran At home for chronic neuropathy pain. Toradol and Flomax will be added to her regimen. Follow-up with urologist encouraged. - Differential Diagnosis renal colic, obstructive uropathy, infection, appendicitis Critical Care Time: No Critical care attestation.: If time is entered above; I have spent that time in minutes in the direct care of this critically ill patient, excluding procedure time. ED Disposition Clinical Impression: Bilateral hydronephrosis, Left ureteral stone, UTI (urinary tract infection), Pleural effusion, right, Pericardial effusion Disposition: DC-01 TO HOME OR SELFCARE Is pt being admited?: No Does the pt Need Aspirin: No Condition: Stable Instructions: Kidney Stones (ED), Urinary Tract Infection in Men (ED), Pleural Effusion (ED), Hydronephrosis (ED) Additional Instructions: Take the medication as prescribed. Follow-up with the doctor/clinic provided or with the doctor of your choice. Return if symptoms worsen as indicated by her discharge instructions. Prescriptions: Tamsulosin [Flomax] 0.4 mg PO QDAY #7 cap levoFLOXacin [Levaquin] 750 mg PO QDAY #7 tablet Ketorolac [Toradol] 10 mg PO Q6H PRN #20 tablet PRN Reason: Pain Referrals: TRACY DENNIS MD [Staff Physician] - 2-3 Days VINNY ACOSTA MD [Primary Care Provider] - 3-5 Days Time of Disposition: 22:49
--- NOTE | 2019-11-10 21:23 | XRay Report ---
CHEST 2 VIEWS INDICATION: incidental pericardial and pleural effusion on ct. COMPARISON: None. FINDINGS: Support devices: Right IJ chest port in satisfactory position. Heart: Within normal limits. Lungs/Pleura: Moderate right effusion with associated volume loss. Mild opacity along the superior as pect of the minor fissure. Left lung clear IMPRESSION: 1. Moderate right effusion with associated volume loss. 2. Indeterminate opacity along the superior aspect of the minor fissure. Signer Name: Aris Pagan MD Signed: 11/10/2019 9:19 PM Workstation Name: [id number]
[2019-11-10] MEDS ORDERED: levoFLOXacin 750 MG TAB PO ONE (21:52)
[2019-11-10 23:25] VITALS: BP 152/96
== END 2019-11-10 23:25 | disposition home or self-care (01) ==
LOC: ED 12:46
DX: N13.39 Other hydronephrosis (principal); N21.1 Calculus in urethra; R11.2 Nausea with vomiting, unspecified; N39.0 Urinary tract infection, site not specified; J90 Pleural effusion, not elsewhere classified; I10 Essential (primary) hypertension; I21.9 Acute myocardial infarction, unspecified; N20.0 Calculus of kidney; Z90.710 Acquired absence of both cervix and uterus; Z98.890 Other specified postprocedural states; Z79.899 Other long term (current) drug therapy; Z88.8 Allergy status to other drugs, medicaments and biological substances
CPT/HCPCS: 36415; 71046; 74176; 80053; 81001; 83690; 85025; 87086; 96361; 96374; 96375; 99284; J1885; J2270; J2405; J7030